=== PATIENT | female | born 1985 | race Two or more races ===

== ENCOUNTER 2019-07-26 05:50 | Day surgery (SDC) | payer OTHER ==
[~2019-07-26 05:50] MED LIST: PRENATAL CAPSU1 EACH PO
== END 2019-07-26 13:40 | disposition home or self-care (01) ==
LOC: CIR.AMB 05:50
DX: N84.0 Polyp of corpus uteri (principal)

== ENCOUNTER 2020-08-01 11:30 | Emergency (ER) | payer OTHER ==
[~2020-08-01] VITALS: Ht 160 cm; Wt 59.0 kg
[2020-08-01] MEDS ORDERED: KETO10TA2 PO (16:01)
== END 2020-08-01 16:15 | disposition home or self-care (01) ==
LOC: ER 11:30
DX: O26.891 Other specified pregnancy related conditions, first trimester (principal); R10.2 Pelvic and perineal pain; O36.80X0 Pregnancy with inconclusive fetal viability, not applicable or unspecified; O00.91 Unspecified ectopic pregnancy with intrauterine pregnancy; Z3A.01 Less than 8 weeks gestation of pregnancy

== ENCOUNTER 2021-10-22 06:00 | Day surgery (SDC) | payer OTHER ==
[~2021-10-22 06:00] MED LIST changes: +KETO10TA2 PO
== END 2021-10-22 17:15 | disposition home or self-care (01) ==
LOC: CIR.AMB 06:00
PROVIDERS: ATTEND Obstetrics & Gynecology
DX: N72 Inflammatory disease of cervix uteri (principal)

== ENCOUNTER 2025-07-04 11:00 | Day surgery (SDC) | payer OTHER ==
[2025-06-20 10:27] LABS: BASO % 0.5 % (0.1-1.2); EOS # 0.02 (0.04-0.54); EOS % 0.3 % (0.7-7.0); LYMPH # 2.07 (1.18-3.74); LYMPH % 34.3 % (19.3-53.1); MEAN PLATELET VOLUME 10.40 fl (9.4-12.4); MONO # 0.42 (0.24-0.82); MONO % 7.0 % (4.7-12.5); NEUT # 3.49 (1.56-6.13); NEUT % 57.7 % (34.0-71.1); RED CELL DISTRIBUTION WIDTH 12.5 % (11.6-14.4)
[2025-06-20 10:28] LABS: URINE APPEARANCE Clear; URINE BILIRRUBIN Negative (NEGATIVE); URINE BLOOD Negative; URINE COLOR Yellow; URINE GLUCOSE Negative (NEGATIVE); URINE KETONE Negative (NEGATIVE); URINE LEUKOCYTE Trace; URINE NITRATE Negative; URINE PROTEIN Negative (NEGATIVE); URINE UROBILINOGEN 0.2 E.U./dl
[2025-06-20 10:34] LABS: URINE BACTERIA 32.3 uL (0.0-1933); URINE EPITHELIAL CELLS 22.7 uL (0.0-38.8); URINE RBC 4.3 uL (0.0-20.8); URINE WBC 5.8 uL (0.0-23.2)
[2025-06-20 10:35] LABS: URINE CAST 0.00 uL (0.0-1.40)
[2025-06-20 10:56] LABS: INR 1.0
[2025-06-20 11:25] LABS: ALT/SGPT 20.0 U/L (12-78); AST/SGOT 9.0 U/L (15-37); BILIRUBIN TOTAL 0.28 mg/dL (0.3-1.2); BUN CREA RATIO 31.0 (7.0-25.0); CREATININE SERUM 0.55 mg/dL (0.55-1.02); GFR 121.21; GLOBULINA 3.6 G/DL (2.4-3.5); GLUCOSE FASTING 85.0 mg/dL (65-100); OSMOLALITY SERUM 280.0 MOSM/KG (275-295)
[~2025-07-04 11:00] MED LIST changes: +LEVOFLOXACIN500 MG PO; +TOPROL XL50 M1 PO
[2025-07-04] MEDS ORDERED: POVIDONE-IODINE 118 ML BOTT TOP ONE (16:36)
== END 2025-07-04 22:10 | disposition home or self-care (01) ==
LOC: CIR.AMB 11:00
PROVIDERS: Specialist; ATTEND Obstetrics & Gynecology
DX: N93.8 Other specified abnormal uterine and vaginal bleeding (principal); D25.0 Submucous leiomyoma of uterus